=== PATIENT | male | born 1955 | race Caucasian/White ===

== ENCOUNTER 2023-10-05 08:18 | Day surgery (SDC) | payer OTHER, SELFPAY ==
[2023-09-17 07:55] VITALS: BMI 34.6
[2023-09-17 08:32] LABS: % Basophils 0.6 % (0-2); % Eosinophils 2.6 % (0-6); % Immature Granulocytes 0.6 % (0-0.5); % Lymphocytes 11.6 % (20.5-51.1); % Monocytes 9.5 % (1.7-9.3); % Neutrophils 75.1 % (42.2-75.2); Absolute Basophils 0.1 10^3/uL (0-0.2); Absolute Eosinophils 0.2 10^3/uL (0-0.7); Absolute Immature Granulocytes 0.1 10^3/uL (0-0.05); Absolute Lymphocytes 0.9 10^3/uL (1.2-3.4); Absolute Monocytes 0.7 10^3/uL (0.1-0.6); Absolute Neutrophils 5.8 10^3/uL (1.4-6.5); Hematocrit 35.9 % (39.0-52.0); Hemoglobin 12.5 g/dL (13.0-18.0); Mean Corp Hgb Conc. 34.8 g/dL (33.0-37.0); Mean Corpuscular Volume 94.7 fL (80.0-94.0); Mean Platelet Volume 9.8 fL (7.4-10.4); Nucleated Red Blood Cells % 0 % (-); Platelet Count 147 10^3/uL (130-400); Red Blood Cell Count 3.79 10^6/uL (4.70-6.10); Red Cell Dist. Width 13.9 % (11.5-14.5); White Blood Cell Count 7.8 10^3/uL (4.8-10.8)
[2023-09-17 08:45] LABS: ALT (SGPT) 25 U/L (0-50); AST (SGOT) 33 U/L (17-59); Albumin 4.3 g/dl (3.5-5.0); Alkaline Phosphatase 122 U/L (38-126); Blood Urea Nitrogen 28 mg/dl (9-20); Calcium 9.3 mg/dl (8.4-10.2); Carbon Dioxide 25 mmol/L (22-30); Chloride 102 mmol/L (98-107); Estimated Creatinine Clearance 60 ml/min; Glucose 137 mg/dl (70-99); Magnesium 1.7 mg/dl (1.6-2.3); Sodium 135 mmol/L (135-145); Total Bilirubin 0.6 mg/dl (0.2-1.3); Total Protein 7.1 g/dl (6.3-8.2); eGFR > 60.00
[2023-10-05] VITALS (10 sets, daily range): BP systolic 118–156; BP diastolic 62–143; BMI 29.0; BMI 33.8
[2023-10-05 12:05] LABS: ACT-LR - POC 308 Seconds (116-155)
[2023-10-05 12:26] LABS: ACT-LR - POC 305 Seconds (116-155)
--- NOTE | 2023-10-05 12:53 | ITS.CL.ABL ---
[facility] - Ablation
Ablation
Procedure Report:
ELECTROPHYSIOLOGY ABLATION STUDY
DATE:: October 05, 2023 REFERRING: Dr. Yordan brown
INDICATION: Paroxysmal supraventricular tachycardia in the form of atrial fibrillation. Prior tachycardia discarded myopathy
HISTORY: See H and P. As above
ANTIARRHYTHMIC DRUG: Amiodarone
PRE-PROCEDURE NATE: No atrial thrombus
PRESENTING RHYTHM: Sinus bradycardia
'TIME-OUT': called and confirmed.
SEDATION/ANESTHESIA: provided via the anesthesia department using general anesthesia (LMA).
INTRAVENOUS/ARTERIAL ACCESS:
Right femoral venous - 10 Fr, 8Fr
Left femoral venous - 8 Fr, 6 Fr
Venous access closed with Vascade devices bilaterally
Ultrasound guidance for bilateral femoral vein access was utilized by me to obtain access with demonstration of normal anatomy
CHADS-VASC Score:
HAS-Bled Score
PROCEDURE:
1. A decapolar CS catheter was placed within the CS for mapping and pacing. This was also used as the reference catheter for the 3-D map.
2. The intracardiac ultrasound catheter was positioned in the RA to identify the FO for targeting of transseptal puncture, assist in identification of the pulmonary vein ostia, monitoring pre and post ablation pulmonary vein flow velocities,
monitoring for 'bubble' formation during RF application as a sign of thermal injury, and to monitor for pericardial effusion during mapping and ablation procedure. Left atrial size, LV ejection fraction, and pulmonary vein flows were monitored
pre and post ablation procedure. The other valves were inspected and found to be free of significant regurgitation or stenosis.
3. Half of the calculated heparin bolus was administered prior to the first transeptal puncture. Transseptal puncture was performed to diagnose RA and LA pressure so that safety of LA mapping and ablation could be further assessed, and to access
the left atrium and pulmonary veins for mapping and ablation. This entailed advancing an 8 Fr SL-1 sheath with dilator into the superior vena cava and withdrawing both (monitoring intracardiac ultrasound, fluoroscopy and tip pressure) with the tip
oriented toward the atrial septum. The fossa ovalis was engaged (indicated by sudden displacement of the sheath tip as well as tenting of the fossa seen on intracardiac ultrasound). Left atrial access required a pass with the Brock[place]brough needle
extended. Left atrial catheter position was confirmed by pressure monitoring (RA mean pressure 8 mm Hg and LA mean presure 14 mm Hg), LA saturation ( 99 %), as well as fluoroscopy. The sheath was advanced over the dilator and positioned in the
left atrium. This procedure was repeated for the Agilis sheath. The remainder of the calculated heparin bolus was administered and heparin was
infused to maintain ACT at 300 -350 seconds throughout the case.
4. RA pacing was performed via the proximal decapolar poles and LA pacing was performed via the distal decapolr poles.
5. A quadrapolar catheter was first positioned at the His position for His Bundle recording which was tagged via the 3-D Navex sytem, and then passed to the RVA for RV pacing and recording.
6. The 28 mm cryoballoon and 15 mm octapolar achieve was placed in each of the LIPV, LSPV, RSPV and the RIPV. The 23 mm cryoballoon was utilized to isolate the left superior pulmonary vein at the umesh.
7. Next, a 3-D map was created using Navex. A 3-D reconstructed CT image was compared to the 3-D Navex map to assist in anatomic interpretation, mapping and ablation. The CT image and the NavX image were fused.
8. 28 mm cryoballoon was utilized for pulmonary vein and extrapulmonary vein lesions. Extrapulmonary lesion was given to the roof outside the left superior pulmonary vein. This was done for 3 minutes. 3-minute application was also given to the
left superior pulmonary vein proper as well as a distinct 3-minute freezing application to the left inferior pulmonary vein right superior pulmonary vein and right inferior pulmonary veins. The left inferior, right superior and right inferior
pulmonary veins were isolated with reconnection of the left superior pulmonary vein at the anterior umesh. A 23 mm cryoballoon was utilized for 3-minute freezing application isolating the vein at 20 seconds with a niki temperature of -69 and a
time to thaw 0 of 25 seconds. This led to durable isolation of all 4 pulmonary veins without cooling of the esophagus or loss of phrenic nerve capture. EP study post isolation demonstrated no other pulmonary vein triggers or nonpulmonary vein
triggers or supraventricular arrhythmia.
9. Normal sinus node and AV node function noted.
TOTAL FLOURO TIME: 13.3 minutes 216 mGy
TOTAL RF DURATION: 0 minutes
REVERSAL OF HEPARIN: 35 mg of protamine, slow IV administration
COMPLICATIONS:
None
Intracardiac US shows no pericardial effusion post ablation.
SUMMARY:
Complex left atrial mapping and ablation.
Isolation of all 4 pulmonary veins as above. Extrapulmonary lesion to the roof outside the left for pulmonary vein. The 23 mm cryoballoon was utilized to durably isolate the left superior pulmonary vein at the anterior umesh.
RECOMMENDATIONS:
1. Admit to monitored bed.
2. Resume anticoagulation
3. Out of bed in 2 hours
4. Consider same-day discharge and consider amiodarone discontinuation in 1 to 3 months
Copy to: Dr. Yordan brown
--- NOTE | 2023-10-05 15:10 | W.PN.UPDATE ---
Update Note
Progress Note Update
68 yo WM s/p PVI (same day). He feels good, no cp, sob, sara diet, amb w/o dizziness, voiding, b/l groins c/d/i no HT, soft, EKG SR. He will continue OAC Eliquis dose at 7pm tonight at home. He will continue amiodarone stop after 1 month, continue
metoprolol. Activity restrictions reviewed. He will f/u [facility] in 2 mo. He is for d/c home after 4pm.
SUMMARY:�
Complex left atrial mapping and ablation.
Isolation of all 4 pulmonary veins as above.� Extrapulmonary lesion to the roof outside the left for pulmonary vein.� The 23 mm cryoballoon was utilized to durably isolate the left superior pulmonary vein at the anterior umesh.
RECOMMENDATIONS:
1. Admit to monitored bed.
2. Resume anticoagulation
3.� Out of bed in 2 hours
4.� Consider same-day discharge and consider amiodarone discontinuation in 1 to 3 months
Copy to: Dr. Yordan brown
== END 2023-10-05 16:05 | disposition home or self-care (01) ==
LOC: CATH 08:18
PROVIDERS: ATTENDING PHYSICIAN Internal Medicine Cardiovascular Disease; FAMILY PHYSICIAN Family Medicine; OTHER PHYSICIAN Internal Medicine Cardiovascular Disease
DX: I48.0 Paroxysmal atrial fibrillation (principal); I11.0 Hypertensive heart disease with heart failure; E78.5 Hyperlipidemia, unspecified; I25.10 Atherosclerotic heart disease of native coronary artery without angina pectoris; Z95.5 Presence of coronary angioplasty implant and graft; I25.5 Ischemic cardiomyopathy; Z86.010 Personal history of colon polyps; D64.9 Anemia, unspecified; Z94.7 Corneal transplant status; E66.9 Obesity, unspecified; Z68.34 Body mass index [BMI] 34.0-34.9, adult; Z79.01 Long term (current) use of anticoagulants; I50.20 Unspecified systolic (congestive) heart failure
CPT/HCPCS: C1766; C1894; C1733; C1730; C1892; 36415; 75572; 76937; 80053; 83735; 85025; 85347; 85610; 86850; 86900; 86901; 93005; 93656; C1759; C1760; Q9967